=== PATIENT | female | born 1950 | race Caucasian/White ===

== ENCOUNTER → 2016-05-10 | Outpatient (CLI) | payer MEDICARE, OTHER ==
[~2016-05-10] MED LIST: CARBIDOPA-LEVO1 EAC3 PO; CENTRUM SILVER1 TAB PO; COLACE100 MG PO; CYMBALTA30 MG PO; DELTASONE10 MG PO; DUONEB INH; FLEXERIL10 MG PO; GAS-X125 MG PO; HUMIBID LA (MU600 MG PO; LASIX20 MG PO; LEVAQUIN 750 M750 MG PO; LEVOTHROID (S137 MCG PO; LIDODERM 5% P1 PATCH TOP; LIPITOR10 MG PO; MORPHINE SULFAT15 M1 PO; NAPROSYN500 MG PO; NORCO 10-325 T1 EACH PO; NUCYNTA50 MG PO; PRILOSEC20 MG PO; PROTONIX40 MG PO; REMOVAL; SINEMET 25-1001 EACH PO; TYLENOL EXTRA500 MG PO; ZANTAC (NON-FO150 MG PO; ZEBETA5 MG PO; ZYRTEC10 MG PO
== END | disposition disaster alternative care site (69) ==
LOC: GPOC 05-01 14:00 → GRAD 05-03 13:00 → GPOC 05-05 14:00 → GRAD 08:55 → GPOC 09:00
PROC: BP38YZZ Magnetic Resonance Imaging (MRI) of Right Shoulder using Other Contrast (ICD-10-PCS; principal; 2016-05-10)
DX: M25.511 Pain in right shoulder (principal); M66.811 Spontaneous rupture of other tendons, right shoulder; M62.511 Muscle wasting and atrophy, not elsewhere classified, right shoulder; M19.011 Primary osteoarthritis, right shoulder; E11.9 Type 2 diabetes mellitus without complications
CPT/HCPCS: A9579; J2001; J2250; J3010; J7030

== ENCOUNTER 2016-07-31 13:00 | Inpatient (IN) | payer MEDICARE, OTHER ==
[~2016-07-31] VITALS: Ht 170.2 cm; Wt 100.0 kg
--- NOTE | ~2016-07-31 | PUL ---
PATIENT'S NAME: CARLOTA DARLING [facility] AGE: 66 Y [address] ROOM: [address] [address] LOCATION: GPCU ADMIT DATE: 07/31/2016 Pulmonary DISCHARGE DATE: 08/03/2016 FAMILY PHYSICIAN: Laura Davis MD ATTENDING PHYSICIAN: Erendira Hidalgo NAME OF PROCEDURE: Overnight Pulse Oximetry DATE OF PROCEDURE: August 02 to August 03, 2016 REASON FOR EXAM: Nocturnal hypoxemia RESULTS: The test was performed on room air. The recording time was 7 hours, 42 minutes, and 8 seconds, with a total valid sampling time of 7 hours, 16 minutes, and 20 seconds. The highest pulse was 100, lowest pulse was 64, with a mean pulse of 80. The highest SpO2 was 98%, lowest SpO2 was 83%, with a mean SpO2 of 89%. The patient spent 3 hours, 2 minutes and 24 seconds with SpO2 less than 89%, representing 41.8% of the total sleep time. The desaturation event index was normal at 4.5. PHYSICIAN INTERPRETATION: The patient has evidence of significant nocturnal hypoxia and would qualify for supplemental oxygen as per Medicare criteria. MD DAIN GARCIA/billy /[id number] dtt: 08/04/16 0632 , KADY GERMAN dtd: 08/04/16 0620
--- NOTE | ~2016-07-31 | ECHO ---
Transthoracic Echocardiography Report (TTE) Demographics Patient Name CARLOTA DARLING Date of Study 07/31/2016 Patient Number [id number] Visit Number [id number] Date of 1950 Room Number G6302 Gender Female Number Age 66 year(s) Referring Rocky Roy Clay Washer Swati Mcnair, Physician RT,RVT,RDCS Physician Interpreting Esteban Willis Sales Manager Physician Taylor MORENO Supervising Ordering Rocky Roy MD/MLP Physician MD Nurse Stress Director Digital Conclusions Contractility Score Summary Global Left Ventricular Hypokinesis was noted. Summary The estimated left ventricular ejection fraction is 45-50%. IVC measures 2.6 cm with inspiratory collapse. Trivial posterior pericardial effusion. Technically difficult study. There is mild pulmonary hypertension. The pulmonary pressure (RVSP) is 30 mmHg. Procedure Type of Study TTE procedure:2D Echocardiogram, M-Mode, Doppler , Color Doppler. Procedure Date Date: 07/31/2016 Start: 03:27 PM Study Location: Inpatient Portable Technical Quality: Limited visualization due to lung interference. Indications:Dyspnea/SOB. Additional Indications:Pneumonia, respiratory distress. Appropriate Use Criteria: 9 Patient Status: Routine HR: 69 bpm BP: 160/74 mmHg Allergies - Sulfa. M-Mode/2D Measurements LV Diastolic Dimension: 5.83 cm LV Systolic Dimension: 4.58 cm LV Septum Diastolic: 1.04 cm LV Septum Systolic: 1.38 cm LV PW Diastolic: 1.08 cm LV PW Systolic: 1.77 cm Cardiac Output: 5.01 l/min LVOT: 2.2 cm EF Estimated: 45 % LVOT VTI: 19.1 cm LV Stroke volume: 72.57 ml Doppler Measurements AV Peak Velocity: 1.24 m/s MV Peak E-Wave: 0.93 m/s AV Peak Gradient: 6.15 mmHg MV Peak A-Wave: 0.41 m/s AV Mean Gradient: 4 mmHg MV E/A Ratio: 2.26 LVOT Peak Velocity: 0.88 m/s MV P1/2t: 52 msec TR Gradient:20.25 mmHg Estimated RAP:10 mmHg Estimated PASP: 30.25 mmHg Estimated RVSP: 30 mmHg A' Septal Velocity: 0.05 m/s E' Septal Velocity: 0.07 m/s MV E/E' Ratio: 13.2 Findings Left Ventricle Normal left ventricle size and function. Right Ventricle Normal right ventricle structure and function. Left Atrium Normal left atrial size. Right Atrium IVC measures 2.6 cm with inspiratory collapse. Mitral Valve Normal mitral valve structure and function. Aortic Valve Normal aortic valve structure and function. Tricuspid Valve There is mild pulmonary hypertension. The pulmonary pressure (RVSP) is 30 mmHg. Pulmonic Valve Pulmonic valve is not well seen. Pericardial Effusion Trivial posterior pericardial effusion. Miscellaneous Visualized portions of the aortic root and ascending aorta appear normal in size. IVC is moderately dilated. Pleural Effusion No evidence of pleural effusion. Contractility Score LV regional wall motion:(0-Non visualized 1-Normal 2-Hypokinesis 3-Akinesis 4-Dyskinesis 5-Aneurysm) Signature dtt: Roxanne Orellana dtd: 07/31/16 1527 Physician Self Edit
--- NOTE | ~2016-07-31 | ENPV ---
Vascular Lower Extremities DVT Study Procedure Demographics Patient Name CARLOTA DARLING Date of Study 07/31/2016 Patient Number [id number] Gender Female Date of 1950 Age 66 Visit Number [id number] Height 67 Weight 233.01 Number Referring Rocky Roy MD Interpreting Amarjit Chung MD Physician Physician Physician Ordering Rocky Roy Health Safety Engineer Physician Accreditation Coordinator Swati Mcnair, RT,RVT,RDCS Conclusions Summary Normal venous duplex examination of the legs bilaterally with normal venous Doppler signals noted throughout. No evidence of thrombophlebitis is noted bilaterally in the deep and superficial veins of the legs. Small calf thrombi cannot be excluded. Procedure Type of Study: Veins:Lower Extremities DVT Study, Venous Duplex Lower Extremity Bilateral. Indications for Study:Bilateral lower extremity edema. Additional Indications:pneumonia Appropriate Use Criteria:9 Allergies - Sulfa. Patient Status:STAT. Study Location:Inpatient Portable. Technical Quality:Adequate visualization. - Preliminary reported to:IVETH Recinos. Velocities are measured in cm/s ; Diameters are measured in cm Right Lower Extremities DVT Study Measurements Right 2D and Doppler Measurements + + + + +------+------+ + !Location !Visualized!Compressibility!Thrombosis!Signal!Reflux!Reflux ! ! ! ! ! ! ! !(sec) ! + + + + +------+------+ + !GSV Thigh !Yes !Yes !None !Phasic!No ! ! + + + + +------+------+ + !Common !Yes !Yes !None !Phasic!No ! ! !Femoral ! ! ! ! ! ! ! + + + + +------+------+ + !Prox !Yes !Yes !None !Phasic!No ! ! !Femoral ! ! ! ! ! ! ! + + + + +------+------+ + !Mid Femoral!Yes !Yes !None !Phasic!No ! ! + + + + +------+------+ + !Dist !Yes !Yes !None !Phasic!No ! ! !Femoral ! ! ! ! ! ! ! + + + + +------+------+ + !Popliteal !Yes !Yes !None !Phasic!No ! ! + + + + +------+------+ + !Gastroc !Yes !Yes !None !Phasic!No ! ! + + + + +------+------+ + !PTV !Yes !Yes !None !Phasic!No ! ! + + + + +------+------+ + !Peroneal !Yes !Yes !None !Phasic!No ! ! + + + + +------+------+ + Left Lower Extremities DVT Study Measurements Left 2D and Doppler Measurements + + + + +------+------+ + !Location !Visualized!Compressibility!Thrombosis!Signal!Reflux!Reflux ! ! ! ! ! ! ! !(sec) ! + + + + +------+------+ + !GSV Thigh !Yes !Yes !None !Phasic!No ! ! + + + + +------+------+ + !Common !Yes !Yes !None !Phasic!No ! ! !Femoral ! ! ! ! ! ! ! + + + + +------+------+ + !Prox !Yes !Yes !None !Phasic!No ! ! !Femoral ! ! ! ! ! ! ! + + + + +------+------+ + !Mid Femoral!Yes !Yes !None !Phasic!No ! ! + + + + +------+------+ + !Dist !Yes !Yes !None !Phasic!No ! ! !Femoral ! ! ! ! ! ! ! + + + + +------+------+ + !Popliteal !Yes !Yes !None !Phasic!No ! ! + + + + +------+------+ + !Gastroc !Yes !Yes !None !Phasic!No ! ! + + + + +------+------+ + !PTV !Yes !Yes !None !Phasic!No ! ! + + + + +------+------+ + !Peroneal !Yes !Yes !None !Phasic!No ! ! + + + + +------+------+ + Signature dtt: VINAY BRAY: 07/31/16 1546 Physician Self Edit
--- NOTE | ~2016-07-31 | DS ---
PATIENT'S NAME: CARLOTA DARLING [facility] AGE: 66 Y [address] ROOM: [address] [address] LOCATION: GPCU ADMIT DATE: 07/31/2016 Discharge Summary DISCHARGE DATE: 08/03/2016 FAMILY PHYSICIAN: Laura Davis MD ATTENDING PHYSICIAN: Erendira Hidalgo FINAL DIAGNOSES: 1. Acute hypoxic respiratory failure. 2. Right lower lobe pneumonia. 3. Chronic obstructive pulmonary disease exacerbation. 4. Acute kidney injury. 5. Acute on chronic systolic congestive heart failure. 6. Nocturnal hypoxia. HISTORY OF PRESENT ILLNESS: For details of admission, please see the history and physical dictated by Dr. Hidalgo. In short, the patient presented with complaints of worsening shortness of breath, cough, and low-grade fever. The patient was noted to have oxygen saturation was noted to be hypoxic and required supplemental oxygen to achieve a saturation greater than 90%. She was admitted for further evaluation. LABORATORY DATA: On admission, ABG; pH of 7.34, pCO2 of 44, pO2 of 60, O2 90% on 2 L. Lactate 1.1. On admission, sodium 141, discharge 141; potassium on admission 4.2, discharge 4.1; CO2 on admission was 28, discharge 28; BUN on admission was 21, discharge 26; creatinine on admission was 1.2, discharge 1.0. Liver enzymes were normal. GFR at discharge was 55. Magnesium at discharge 2.5. Cholesterol was 124, HDL 61, LDL 51. ProBNP on admission was 493. Hemoglobin A1c was 5.9. On admission, white blood cell count was 10.4 with increased neutrophils, hemoglobin was 14.5, hematocrit 44.5, platelet count 295. Procalcitonin on admission was 0.28. MICROBIOLOGY DATA: Urine culture was negative. X-RAY DATA: Chest x-ray done on for followup did in fact show a right lower lobe pneumonia. CARDIOVASCULAR DATA: Echocardiogram done did show that she had an ejection fraction of 45%. Bilateral lower extremity venous Dopplers were negative. HOSPITAL COURSE: The patient was admitted to the hospital with diagnosis of acute hypoxic respiratory failure. It was felt that was related to her right lower lobe pneumonia as well as COPD exacerbation. She was admitted to the hospital, started on IV Rocephin and Levaquin. Urine streptococcal antigen and Legionella antigen were obtained. She was started on oral prednisone. An echocardiogram was obtained to evaluate her LV function. She was put on PATIENT'S NAME: CARLOTA DARLING [facility] AGE: 66 Y [address] ROOM: [address] [place], [place] [address] LOCATION: GPCU ADMIT DATE: 07/31/2016 Discharge Summary DISCHARGE DATE: 08/03/2016 FAMILY PHYSICIAN: Laura Davis MD ATTENDING PHYSICIAN: Erendira Hidalgo. Because of the significant leg edema, Dopplers were obtained. She was initiated on steroids. On the second hospital day, she was feeling better. We did give very aggressive with the pulmonary toilet. We worked into wean her O2 sats. She was initiated on Mucinex to help liquify the secretions. Her kidney function and electrolytes were followed closely. It was felt that she had acute component of congestive heart failure because of the peripheral edema, and she was given doses of IV diuretic, which she responded to very nicely. We were able to get the prednisone started on a taper. We worked to get her weaned off oxygen. We did a walking oximetry, and it returned with her O2 saturation 93%. We did, however, also do an overnight trend ox that showed that her oxygen saturation was only greater than 90% on 30% of the monitored time, and I did speak with her at length regarding this, and she did agree to use the nocturnal oxygen. It was felt that she was stable for discharge and was able to be discharged to home. DISCHARGE INSTRUCTIONS: She is to follow up with Dr. Davis, who is her primary care provider in 3 to 5 days. She is to wear oxygen at 2 L at night per nasal cannula. I told her to discuss with Dr. Davis whether she needed to have a formal sleep study. MEDICATIONS: 1. Atorvastatin 10 mg daily. 2. Zebeta 5 mg daily. 3. Synthroid 137 mcg daily. 4. Gas-X 1 tablet 4 times daily as needed. 5. Multivitamin daily. 6. Carbidopa extended release 25/100 two pills twice daily. 7. Colace 100 mg daily. 8. Flexeril 10 mg at bedtime. 9. Cymbalta 30 mg daily. 10. Imbler 10/325 one tablet twice daily. 11. Morphine sulfate extended release 15 mg twice daily. 12. Omeprazole 20 mg daily. 13. Ranitidine 150 mg daily. 14. Zyrtec 10 mg daily. 15. Carbidopa 25/100 one tablet twice daily. 16. Guaifenesin 600 mg 3 times daily. 17. Levaquin 750 mg daily, stop date August 06. 18. Albuterol inhaled 4 times daily as needed. 19. Prednisone taper 20 mg twice daily for one day, then 20 mg daily for 3 days, then 10 mg daily for 3 days, then 5 mg daily for 3 days, then stop. OVERALL PROGNOSIS: At discharge was good. PATIENT'S NAME: CARLOTA DARLING [facility] AGE: 66 Y [address] ROOM: [address] [address] [facility] ADMIT DATE: 07/31/2016 Discharge Summary DISCHARGE DATE: 08/03/2016 FAMILY PHYSICIAN: Laura Davis MD ATTENDING PHYSICIAN: Erendira Hidalgo CHANDLER MACEDO MD LAW/modl /[id number] d: 08/04/16153 t: 08/04/16 192, DISCHARGE SUMMARY
--- NOTE | ~2016-07-31 | HP ---
PATIENT'S NAME: CARLOTA DARLING [facility] AGE: 66 Y [address] ROOM: [place] [address] LOCATION: GPCU ADMIT DATE: 07/31/2016 History & Physical DISCHARGE DATE: FAMILY PHYSICIAN: Laura Davis MD ATTENDING PHYSICIAN: MARIN ELDRIDGE DATE OF SERVICE: CHIEF COMPLAINT: Fever, cough, and shortness of breath. HISTORY OF PRESENT ILLNESS: A 66-year-old lady with a past medical history significant for lower back pain secondary to spinal stenosis and multiple fusions done in the past, who presented to primary care with a chief complaint of shortness of breath, which has been going on since Sunday, progressive in nature, got worse on Sunday night, Sunday morning, associated with cough, low-grade temperature of 100.8 at home, and congestion. On further inquiry, she stated that she has been short of breath for that period of time and has been sleeping in the recliner for that matter, and woke up multiple times during the night coughing and short of breath. She did endorse having chronic leg swelling, which is worse now. On further questioning, she denied having any dizziness, any weakness anywhere in the body, any chest pain, any palpitations, any abdominal pain, any constipation, diarrhea, any burning on urination, but did endorse having chronic lower back pain. She was admitted in the hospital couple of weeks ago but did not receive any IV antibiotics. PAST MEDICAL HISTORY: 1. Chronic back pain secondary to spinal stenosis, status post multiple surgeries and fusions. 2. Peptic ulcer disease. 3. Spinal stenosis. 4. History of septal myocardial infarction. 5. Hyperlipidemia. 6. Type 2 diabetes mellitus. 7. Hypothyroidism. 8. There is no documented diagnosis of COPD. FAMILY HISTORY: Significant for coronary artery disease as well as hypertension in father. Father had myocardial infarction at the age of 65. SOCIAL HISTORY: PATIENT'S NAME: CARLOTA DARLING [facility] AGE: 66 Y [address] ROOM: [place] [address] LOCATION: GPCU ADMIT DATE: 07/31/2016 History & Physical DISCHARGE DATE: FAMILY PHYSICIAN: Laura Davis MD ATTENDING PHYSICIAN: KHALID,FUNES A A half-pack smoker lifelong, no alcohol or drug abuse. REVIEW OF SYSTEMS: All other systems were reviewed and were negative except what is mentioned in the HPI. ALLERGIES: THE PATIENT IS ALLERGIC TO SULFA DRUGS. I SEE MACROLIDES ON THE ALLERGY LIST, BUT SHE SAID AZITHROMYCIN AND CLARITHROMYCIN JUST DOES NOT WORK FOR HER. MEDICATIONS: Home medications included: 1. Lipitor 10 mg p.o. every day. 2. Bisoprolol fumarate 5 mg p.o. every morning. 3. Carbidopa and levodopa ER 25/100 two tablets p.o. twice daily. 4. Carbidopa and levodopa 1 tablet p.o. twice daily. 5. Cetirizine 10 mg p.o. every day. 6. Flexeril 10 mg p.o. every night at bedtime p.r.n. 7. Docusate 100 mg p.o. every day. 8. Duloxetine 30 mg p.o. every day. 9. [place] 10/325 tablet 1 p.o. twice daily. 10. Levothyroxine 137 mcg p.o. every day. 11. Miscellaneous multivitamin 1 tablet daily. 12. Morphine sulfate 15 mg p.o. twice daily. 13. Omeprazole 20 mg p.o. every day. 14. Ranitidine 150 mg p.o. every day p.r.n. for ingestion. 15. Simethicone 1 capsule 125 mg 4 times daily. PHYSICAL EXAMINATION: VITAL SIGNS: 180/97, 22, afebrile, 76. GENERAL: In mild acute distress due to shortness of breath. HEENT: Head: Atraumatic, normocephalic. Eyes: Nonicteric. No pallor. Oropharynx: Moist mucous membranes. CARDIOVASCULAR: S1, S2. No murmurs, gallops, or rubs. LUNGS: Bilateral diffuse expiratory wheezes. Right-sided crackles at the bases. ABDOMEN: Soft, nontender, nondistended. Bowel sounds are present. EXTREMITIES: +3 extremity edema. MUSCULOSKELETAL: Positive tenderness in the back. SKIN: No bruises, rashes, or jaundice noted. PSYCH: Normal affect, mood, and speech. NEURO: Cranial nerves 2 through 12 intact. No motor or sensory deficits noted. LABORATORY AND DIAGNOSTIC DATA: PATIENT'S NAME: CARLOTA DARLING [facility] AGE: 66 Y [address] ROOM: [address] [place], [place] [address] LOCATION: GPCU ADMIT DATE: 07/31/2016 History & Physical DISCHARGE DATE: FAMILY PHYSICIAN: Laura Davis MD ATTENDING PHYSICIAN: MARIN ELDRIDGE EKG done in our facility showed sinus rhythm with occasional premature atrial contractions. No acute ST-T wave changes were appreciated. Lab work from the primary care physician's office showed white count of 9, platelet count of 274, hemoglobin of 14. BMP showed sodium of 140, potassium 4.7, glucose 116. Total bilirubin 0.4, protein 6.9, BUN 19, and creatinine was 0.9. Chest x-ray was reviewed. It Did show hyperinflated lungs with a right infiltrate. BNP was done at the outside facility showed result of 93.4. BNP done at our hospital showed 493. ABG showed pH of 7.39, pCO2 of 44, pO2 of 60, saturation 90% on 2 L. Hemoglobin A1c 5.9. ASSESSMENT: 1. Acute hypoxic respiratory failure. 2. Right lower lobe pneumonia. 3. Chronic obstructive pulmonary disease exacerbation (the patient does not have documented diagnosis, but the physical exam, x-ray finding, and history is consistent with it). 4. Chronic lower back pain. 5. Coronary artery disease. 6. Hyperlipidemia. 7. Type 2 diabetes mellitus. 8. Hypertension. 9. Hypothyroidism. 10. Heart failure with preserved ejection fraction. 11. History of persistently elevated cardiac enzymes. 12. Parkinson's disease, stable on carbidopa as well as levodopa. PLAN: We are going to admit this patient to the PCU. Provide supplemental oxygen. Obtain sputum cultures. We will start IV antibiotics for the pneumonia. Though she has been in the hospital in last couple of weeks but does not carry any high risk factors for multi-drug resistant pathogens. We are going to treat with Rocephin as well as Levaquin. I am also going to treat her as an acute COPD exacerbation with prednisone and DuoNeb's and monitor her response. Interestingly, her procalcitonin came back less than 0.05, which appears spurious to me at this point. We are going to treat the pneumonia on the clinical criteria. Her A1c is 5.9. I will just continue to monitor on sliding scale insulin in the hospital. Home medications for chronic back pain have been restarted. We will obtain echocardiogram as well. Her BNP is negative for any evidence of heart failure at this point. DVT prophylaxis with Lovenox at this point. We are going to obtain Dopplers of the lower PATIENT'S NAME: CARLOTA DARLING [facility] AGE: 66 Y [address] ROOM: [place] [address] LOCATION: [facility] ADMIT DATE: 07/31/2016 History & Physical DISCHARGE DATE: FAMILY PHYSICIAN: Laura Davis MD ATTENDING PHYSICIAN: MARIN ELDRIDGE. Her further course will depend on her progress in the hospital. MARIN ELDRIDGE MD JR/modl /[id number] D: [id number] T: [id number] HISTORY & PHYSICAL
[~2016-07-31 13:00] MED LIST changes: -DELTASONE10 MG PO; -DUONEB INH; -HUMIBID LA (MU600 MG PO; -LEVAQUIN 750 M750 MG PO
[2016-07-31] MEDS ORDERED: ZANTAC (NON-FO150 MG PO (14:15)
[2016-07-31] MEDS ORDERED: ZYRTEC10 MG PO (14:16)
[2016-07-31] MEDS ORDERED: CARBIDOPA-LEVO1 EAC3 PO (14:18)
[2016-07-31 14:19] LABS: BICARBONATE 26.6 mmol/L (18.0-23.0); LACTATE 1.1 mEq/L (0.50-1.60); PCO2 44 mmHg (35-45); PO2 60 mmHg (80-90)
--- NOTE | 2016-07-31 14:47 | NUR ---
Pt is 66 y/o female admit for pneumonia/acute resp distress for hospitalist. Pt alert and oriented x3. Resides at home with . Allergies sulfa, zpack,biaxin. REd and yellow bracelets on. Pt states she's been running a fever of around 100,cough,congestion. Hx MT,htn,hypercholest,dysrhythmia, edema feet,lower back pain, spinal stenosis,leaking/dribbling,depression, DM,thyroidectomy,stress incontinence,hayfever. Difficult IV stick.
--- NOTE | 2016-07-31 17:24 | NUR ---
Significant Event: HYPOXIC ON RA WITH SATS 87%. PLACED ON 2LO2 PER NC WITH COARSE LUNGS SOUNDS AND EXP WHEEZES. HX PARKINSONS, ALERT/ORIENTED X3. IV ROCEPHIN AND PO LEVAQUIN INITIATED. PIV TO L) HAND SL'D. NO SKIN ISSUES AND NO RECENT FALLS. AMBULATES SBA. IV LASIX 40MG GIVEN X1 WITH 900ML UOP THIS SHIFT. BM X2. URINE SENT FOR LAB. VENOUS DOPPLERS OF BILATERAL LOWER EXTREMITIES NEGATIVE. ECHO AT BEDSIDE. NO C/O PAIN, TAKES PO MORPHINE AT HOME BID. Follow up: CONT TO MONITOR RESP STATUS AND ACCURATE I/O. PT/OT.
--- NOTE | 2016-08-01 04:42 | NUR ---
Significant Event: A/0 X 3, AMBULATES STAND BY ASSIST. UNSTEADY AT TIMES. SBP'S 130-140'S, HR 70-80'S. 02 TITRATED UP TO 4L, RHONCHI AND WHEEZY. +3 EDEMA. LASIX WAS GIVEN DURING DAY SHIFT AROUND 1600. HAD 2,800 ML URINE OUTPUT ON BLEACH RANGE OPERATOR. Follow up: STILL NEED SPUTUM CULTURE.
[2016-08-01 05:58] LABS: BASOPHIL % 0.2 %; HEMATOCRIT 44.5 % (33.0-46.0); HEMOGLOBIN 14.5 g/dL (10.0-15.0); IMMATURE GRANULOCYTE # 0.1 K/uL (0.0-0.3); IMMATURE GRANULOCYTE % 0.5 %; LYMPHOCYTE # 0.6 K/uL (0.8-4.0); LYMPHOCYTE % 5.9 %; MCH 32.1 pg (27.0-34.0); MCHC 32.6 gm/dL (32.0-36.5); MCV 98.5 fl (83.0-98.0); MONOCYTE # 0.3 K/uL (0.0-1.0); MONOCYTE % 3.3 %; MPV 10.5 fl (9.4-12.4); NEUTROPHIL # (ANC) 9.4 K/uL (1.8-7.8); NEUTROPHIL % 90.1 %; NRBC % 0 /100WBC (0-0.00); PLATELET COUNT 295 K/uL (150-450); RBC 4.52 M/uL (3.50-5.50); RDW-CV 13.4 % (11.9-14.6); WBC 10.4 K/uL (4.0-11.0)
[2016-08-01 06:13] LABS: ANION GAP 13.2 (10.0-19.0); CALCIUM 9.4 mg/dL (8.5-10.5); CREATININE 1.2 mg/dL (0.5-1.1); POTASSIUM 4.2 mMol/L (3.7-5.1)
--- NOTE | 2016-08-01 11:34 | NUR ---
Introduced self and role of care management to patient and her family. She lives with her outside of [place]. She states that d/t multiple back issuses her assists her with her ADL's. He does all the housework also. If he is not available she has a daughter that assists. She plans on returning home on discharge. She denies any needs at this time. Will continue to follow.
--- NOTE | 2016-08-01 15:51 | NUR ---
Significant Event: A/Ox3. [id number]. P-70-90s. NSR. Afebrile. 4L NC with saturation in the low 90s. 2+ edema to lower extremeties. Up with SBA. Iv antibiotic therapy continued. 40mg of IVP lasix givn x1. 1300ml of urine out this shift.
[2016-08-01 18:26] LABS: CALCIUM 9.2 mg/dL (8.5-10.5); CREATININE 1.2 mg/dL (0.5-1.1); MAGNESIUM 2.3 mg/dL (1.8-2.6)
--- NOTE | 2016-08-02 04:45 | NUR ---
Significant Event: A/0 X 3, AMBULATES STAND BY ASISST. 02 AT 4L WITH SATS IN LOW 90'S. LUNGS REMAIN WHEEZY WITH CRACKLES. ALL OTHER VSS, AFEBRILE. BEGAN TO HAVE PAIN AROUND 0340, ADJUSTED SCHEDULE OF PAIN MEDS TO HOME SCHEDULE. WILL CONTINUE TO MONITOR. PLEASANT AND COOPERATIVE. Follow up:
[2016-08-02 06:08] LABS: ALBUMIN 3.3 gm/dL (3.5-5.0); ANION GAP 11.8 (10.0-19.0); MAGNESIUM 2.5 mg/dL (1.8-2.6); PHOSPHORUS 3.3 mg/dL (2.5-4.9); POTASSIUM 3.8 mMol/L (3.7-5.1)
--- NOTE | 2016-08-02 18:26 | NUR ---
Significant Event: VSS WITH O2 WEANED FROM 4L TO 2L/NC TO KEEP SATS >90%. LUNGS COARSE WITH OCCASIONAL WHEEZES. OVERNIGHT TREND OX TONIGHT ON RA. IV LASIX 40MG X1 GIVEN WITH >1800ML UOP. SBA WITH AMBULATION. CHRONIC PAIN TO HIPS/BACK MANAGED WITH SCHEDULED MORPHINE AND NORCO. PIV TO L) FA SL'D. IV ATB CONTINUED AND PREDNISONE DOSE DECREASED TODAY. ACHS ACCUCHECKS. Follow up: POSSIBLY HOME NEXT DAY OR 2. MONITOR PER PLAN OF CARE.
[2016-08-03 03:55] LABS: ALBUMIN 3.5 gm/dL (3.5-5.0); ANION GAP 13.1 (10.0-19.0); CALCIUM 9.3 mg/dL (8.5-10.5); MAGNESIUM 2.5 mg/dL (1.8-2.6); PHOSPHORUS 3.4 mg/dL (2.5-4.9); POTASSIUM 4.1 mMol/L (3.7-5.1)
--- NOTE | 2016-08-03 05:32 | NUR ---
Significant Event: PATIENT A/O X 3, COOPERATIVE WITH CARES. VSS. OVERNIGHT TREND OX IN PROGRESS. UP WITH 1ASSIST TO BATHROOM, DAMION WELL. PATIENT RESTS WELL OVERNIGHT. Follow up: CONTINUE TO MONITOR PER PLAN OF CARE.
[2016-08-03] MEDS ORDERED: LEVAQUIN 750 M750 MG PO (11:56)
[2016-08-03] MEDS ORDERED: HUMIBID LA (MU600 MG PO (11:56)
[2016-08-03] MEDS ORDERED: DUONEB INH (11:59)
[2016-08-03] MEDS ORDERED: DELTASONE10 MG PO (12:02)
--- NOTE | 2016-08-03 14:23 | NUR ---
PATIENT AND GIVEN WRITTEN DISMISSAL INSTRUCTIONS INCLUDING NEW HOME MEDICATION LIST WITH INFORMATION ON NEW MEDS, PRESCRIPTIONS, APPOINTMENT DATE AND TIME WITH PCP, DIET AND ACTIVITY RESTRICTIONS, WELL SPECIAL INSTRUCTIONS TO WEAR 2L/NC AT BEDTIME. PATIENT AND BOTH VERBALLY AGREE WITH INFORMATION DISCUSSED WITH RN. PIV REMOVED FROM LEFT FA WITH GAUZE AND COBAN APPLIED. PATIENT DRESSED AND TELEMETRY DC'D. TAKEN TO FRONT OF [facility] VIA WHEELCHAIR ACCOMPANIED BY RN, FAMILY AND BELONGINGS AT 1405.
== END 2016-08-03 14:05 | disposition disaster alternative care site (69) | DRG 189 ==
LOC: GPCU 13:04
PROVIDERS: Internal Medicine; ADMIT Internal Medicine
PROC: B246ZZZ Ultrasonography of Right and Left Heart (ICD-10-PCS; principal; 2016-07-31)
PROC: 3E0F7GC Introduction of Other Therapeutic Substance into Respiratory Tract, Via Natural or Artificial Opening (ICD-10-PCS; 2016-08-02)
DX: J96.01 Acute respiratory failure with hypoxia (principal); I50.23 Acute on chronic systolic (congestive) heart failure; J18.1 Lobar pneumonia, unspecified organism; G20 Parkinson's disease; I11.0 Hypertensive heart disease with heart failure; G47.34 Idiopathic sleep related nonobstructive alveolar hypoventilation; J44.1 Chronic obstructive pulmonary disease with (acute) exacerbation; J44.0 Chronic obstructive pulmonary disease with (acute) lower respiratory infection; E03.9 Hypothyroidism, unspecified; E11.9 Type 2 diabetes mellitus without complications; E78.5 Hyperlipidemia, unspecified; I25.10 Atherosclerotic heart disease of native coronary artery without angina pectoris
CPT/HCPCS: J0696; J1650; J1940; J7040; J7050; J7512

== ENCOUNTER → 2016-10-24 | Outpatient (CLI) | payer MEDICARE, OTHER ==
[~2016-10-24] MED LIST changes: +DELTASONE10 MG PO; +DUONEB INH; +HUMIBID LA (MU600 MG PO; +LEVAQUIN 750 M750 MG PO
--- NOTE | ~2016-10-24 | PUL ---
PATIENT'S NAME: CARLOTA DARLING [facility] AGE: 66 Y [address] ROOM: [place] [id number] LOCATION: [facility] ADMIT DATE: 10/24/2016 Pulmonary DISCHARGE DATE: FAMILY PHYSICIAN: Laura Davis MD ATTENDING PHYSICIAN: Laura Davis NAME OF PROCEDURE: Sleep Study PROCEDURE DATE: 10/24/16 TECH: Beatriz Gonsalves, YARN REWINDER TEST #: [facility] [place]# [id number] TECHNICAL PARAMETERS: The patient was studied using [employer] 10/20 measuring system. While the patient was studied, there was continuous monitoring of EEG (8 leads), EOG (2 leads), EKG (3 leads), submental EMG (3 leads), tibial (4 leads), respiratory inductive plethysmography (RIP) for thoracic and abdominal effort, oral and nasal airflow with a thermocouple and pressure transducer, and oximetry. The records management technician also performed visual and auditory observations noting things like body position, patient's status, breath sounds, artifact, snoring level and patient comments. Continuous sound was monitored using a 2-way speaker system and video monitoring was performed using an infrared camera. Review of the entire study was performed epoch by epoch utilizing a single epoch and multiple epoch capability sleep system. MEDICAL HISTORY: The patient is a 66-year-old woman with daytime sleepiness and snoring. SLEEP STAGE SUMMARY: The patient was studied for 376 minutes of which she slept 30 minutes. She fell asleep in 210 minutes and slept for only 8% of the night. RESPIRATORY SUMMARY: No apneas or hypopneas were noted in the limited time the patient slept. EKG SUMMARY: No dysrhythmias. LIMB MOVEMENT SUMMARY: No relevant limb movements were noted. SUMMARY: Extremely poor sleep in general. PLAN: The patient will receive results from the ordering provider. PATIENT'S NAME: CARLOTA DARLING [facility] AGE: 66 Y [address] ROOM: [place] [address] LOCATION: [facility] ADMIT DATE: 10/24/2016 Pulmonary DISCHARGE DATE: FAMILY PHYSICIAN: Laura Davis MD ATTENDING PHYSICIAN: Laura Davis MD RACHEL HERNANDEZ/solomon /[id number] dtt: 10/27/16 0949 , Lamonte Amado dtd: 10/26/16 1449
== END | disposition disaster alternative care site (69) ==
LOC: GSLP 20:33
DX: G47.36 Sleep related hypoventilation in conditions classified elsewhere (principal)